=== PATIENT | female | born 1965 | race Caucasian/White ===

== ENCOUNTER 2017-02-25 08:56 | Emergency (ER) | payer BC, OTHER ==
[2017-02-25 09:02] VITALS: BP 134/83; PULSE 70; RESP 18; TEMP 97.9
[2017-02-25] MEDS ORDERED: IPRATROPIUM/ALBUTEROL 3 ML DEYVIAL IH ONE (09:19)
--- NOTE | 2017-02-25 09:23 | EDPHY ---
H & P Stated Complaint: low O2 levels, bronchitis, at urgent care yesterday Time Seen by Provider: 02/25/17 09:07 HPI/ROS: Chief Complaint: Cough, shortness of breath, bronchitis HPI: 51-year-old woman was diagnosed with bronchitis at urgent care yesterday. She has been having upper respiratory symptoms for the last 5 days including cough, fevers and chills, sore throat. She was started on azithromycin common Tessalon Perles, codeine, and was given a prescription for an albuterol inhaler. She is not using albuterol. She was not given a prescription for spacer. Cough has been productive of some greenish sputum. This morning she has some nausea and vomiting following the cough. Has had some subjective fevers and chills. Some sore throat. She went back to Urgent Care today for recheck and they noted a low oxygen level and told her to come to the emergency department. ROS: 10 point Review of Systems is negative except as noted in the HPI. PMH: Denies Social History: No smoking, occasional alcohol, no recreational drug use Family History: non-contributory Physical Exam: Gen: Awake, Alert, No Distress HEENT: Nose: no rhinorrhea Eyes: PERRLA, EOMI Mouth: Moist mucosa Neck: Supple, no JVD Chest: nontender, diffuse expiratory wheezing, no focal rales or rhonchi Heart: S1, S2 normal, no murmur Abd: Soft, non-tender, no guarding Back: no CVA tenderness, no midline tenderness Ext: no edema, non-tender Skin: no rash Neuro: CN II-XII intact, Sensation grossly intact, Strength 5/5 in bilateral upper and lower extremities - Personal History LMP (Females 10-55): 1-7 Days Ago - Medical/Surgical History Hx Asthma: No Hx Chronic Respiratory Disease: No Hx Diabetes: No Hx Cardiac Disease: No Hx Renal Disease: No Hx Cirrhosis: No Hx Alcoholism: No Hx HIV/AIDS: No Hx Splenectomy or Spleen Trauma: No Other PMH: Melignant melanoma in 2006,. Appendectomy, Hx of DVT - last Dec, 2013, right knee, left ankle surgery - Social History Smoking Status: Former smoker Constitutional: Initial Vital Signs Temperature (C) 36.6 C 02/25/17 08:58 Heart Rate 70 02/25/17 08:58 Respiratory Rate 18 02/25/17 08:58 Blood Pressure 134/83 H 02/25/17 08:58 O2 Sat (%) 93 02/25/17 08:58 O2 Delivery Mode Room Air Allergies/Adverse Reactions: Penicillins Allergy (Verified 02/25/17 09:02) adhesive tape Allergy (Uncoded 02/25/17 09:02) Home Medications: Medication Instructions Recorded AZITHROMYCIN 02/25/17 Albuterol 02/25/17 Tessalon Pearles 02/25/17 predniSONE 60 mg PO DAILY #15 tab 02/25/17 Medical Decision Making ED Course/Re-evaluation: I have reviewed the patient's chest x-ray from yesterday. It was read as normal by Dr. Salas. Patient does not have clinical findings of pneumonia today. Her oxygen levels are 94% on room air. She has not been using her albuterol inhaler at home. She does not have a spacer. Will give her a DuoNeb here and reassess. She is already taking azithromycin. I have discussed the utility of cough suppressants and risks associated with them as well. I told her that the albuterol inhaler is probably going to be the best treatment for her cough. Patient is improved after albuterol neb. She is dull having some wheezing and cough. Will give her 60 mg of prednisone in a short course of prednisone for home. I have instructed her to use albuterol every 4 hr. She will return for worsening. Follow-up with primary care physician in about a week. - Data Points Laboratory Results: 02/25/17 09:05 Influenza A,B Rapid NEGATIVE FOR FLU (NEGATIVE) Medications Given: Discontinued Medications Albuterol/Ipratropium (Duoneb) 3 ml IH EDNOW ONE Stop: 02/25/17 09:20 Last Admin: 02/25/17 09:24 Dose: 3 ml Prednisone (Prednisone) 60 mg PO EDNOW ONE Stop: 02/25/17 09:46 Last Admin: 02/25/17 09:46 Dose: 60 mg Departure - Departure Disposition: Home, Routine, Self-Care Clinical Impression: Acute bronchitis, Acute exacerbation of congestive heart failure Condition: Good Instructions: Acute Bronchitis (ED), Wheezing (ED), Bronchospasm (ED) Additional Instructions: Use the albuterol inhaler with a spacer 2 puffs every 4 hr. Please take your full course of antibiotics. Take your full course of prednisone. Return to the emergency department for increasing shortness of breath, uncontrolled fevers or chills, uncontrolled nausea vomiting, or any other concerns. Referrals: Saira Nguyễn MD [Primary Care Provider] - As per Instructions Prescriptions: predniSONE 60 mg PO DAILY #15 tab
[2017-02-25] MEDS ORDERED: predniSONE 20 MG TAB ONE (09:43)
[2017-02-25] MEDS ORDERED: predniSONE 20 MG TAB PO ONE (09:45)
[2017-02-25 10:01] VITALS: O2SAT 95
== END 2017-02-25 09:54 | disposition home or self-care (01) ==
LOC: CED 08:56
DX: J20.9 Acute bronchitis, unspecified (principal); I50.9 Heart failure, unspecified; Z87.891 Personal history of nicotine dependence
CPT/HCPCS: 87400-PO